=== PATIENT | male | born 1965 ===

== ENCOUNTER → 2016-05-04 | Outpatient (CLI) | payer BC ==
[2016-05-04 13:32] LABS: BLOOD UREA NITROGEN 25 mg/dl (7-18); BUN/CREATININE RATIO 27.7 (10-20); CALCIUM 9.1 mg/dl (8.5-10.1); CARBON DIOXIDE 29 mmol/L (21-32); CHLORIDE 102 mmol/L (98-107); CREATININE 0.91 mg/dl (0.60-1.40); GLUCOSE 101 mg/dl (70-99); POTASSIUM 4.5 mmol/L (3.5-5.1); SODIUM 139 mmol/L (136-145)
== END | disposition home or self-care (01) ==
LOC: C.LABMFLN 07:48
PROVIDERS: ATTEND Family Medicine
DX: I10 Essential (primary) hypertension (principal)